=== PATIENT | female | born 1930 | race Caucasian/White ===

== ENCOUNTER 2017-06-21 10:02 | Emergency (ER) | payer OTHER ==
[~2017-06-21] VITALS: Ht 162.6 cm; Wt 74.8 kg
--- NOTE | ~2017-06-21 | EKG ---
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
[~2017-06-21 10:02] MED LIST: ALEVE220 MG PO; APAP500 PO; ASPIR 8181 MG PO; BREATHE RIGHT1 EACH; CENTRUM SILVER1 EAC4 PO; ELIQUIS5 MG; FISH OIL 1,001000 M2 PO; FLAGYL500 MG; IBUPROFEN 200200 M1 PO; LOPRESSOR25 PO; METAMUCIL PAC1 UDPKT PO; MICROZIDE12.5 MG PO; PACERONE 200 M200 M1 PO; POTASSIUM20 PO; SINGULAIR 10 MG10 M1 PO; VIACTIV SOFT C1 EACH PO; VITAMIN D31000 UNI2 PO; XARELTO10 MG PO; XARELTO20 MG PO; ZOCOR20 MG PO
[2017-06-21] MEDS ORDERED: COREG6.25 MG PO (10:28)
[2017-06-21] MEDS ORDERED: ATORVASTATIN CA40 MG PO (10:28)
[2017-06-21] MEDS ORDERED: XANAX 0.25 MG0.25 MG PO (10:29)
[2017-06-21 11:04] LABS: ABSOLUTE NEUTROPHILS 4.2 thou/uL (1.4-8.2); BASOPHILS 1.2 % (0.0-2.0); EOSINOPHILS 1.8 % (0.0-3.0); HEMATOCRIT 39.6 % (37.0-47.0); HEMOGLOBIN 13.9 gm/dL (12.0-15.0); MANUAL DIFF NO; MCH 30.7 pg (26.0-34.0); MCV 87.8 fL (80.0-100.0); MONOCYTES 7.1 % (1.0-8.0); PLATELET COUNT 227 thou/uL (150-400); POLYS 59.9 % (36.0-66.0); RBC 4.51 mil/uL (4.20-5.00); RDW 13.5 % (10.5-14.5); WBC 7.1 thou/uL (4.0-11.0)
[2017-06-21 11:11] LABS: CALCIUM 9.6 mg/dL (8.5-10.1); POTASSIUM 4.5 mmol/L (3.5-5.1)
[2017-06-21 11:17] LABS: ALBUMIN 3.9 g/dL (3.4-5.0); DIRECT BILIRUBIN 0.1 mg/dL (<0.1-0.3); TOTAL BILIRUBIN 0.6 mg/dL (<0.1-1.0); TOTAL PROTEIN 7.3 g/dL (6.4-8.2)
[2017-06-21 11:39] LABS: URINE BILIRUBIN NEGATIVE (Negative); URINE BLOOD 1+ (Negative); URINE COLOR YELLOW; URINE GLUCOSE-RANDOM* NEGATIVE (Negative); URINE KETONES NEGATIVE (Negative); URINE LEUKOCYTES-REFLEX 1+ (Negative); URINE PROTEIN (DIPSTICK) NEGATIVE (Negative); URINE SPECIFIC GRAVITY <= 1.005 (1.003-1.035); URINE UROBILINOGEN 0.2 E.U./dl (0.2-1.0)
[2017-06-21 12:22] LABS: CASTS None Seen /LPF (None Seen); CRYSTALS None Seen /LPF (None Seen); SQUAMOUS None Seen /LPF (0-3); URINE RBC 0-2 Rare /HPF (0-2); URINE WBC-REFLEX 0-5 Rare /HPF (0-5)
== END 2017-06-21 14:24 | disposition home or self-care (01) ==
LOC: ER 10:02
PROVIDERS: Emergency Medicine
DX: R10.84 Generalized abdominal pain (principal); I10 Essential (primary) hypertension; Z98.890 Other specified postprocedural states; Z88.1 Allergy status to other antibiotic agents

== ENCOUNTER 2018-03-10 08:22 | Emergency (ER) | payer OTHER ==
[~2018-03-10] VITALS: Ht 165.1 cm; Wt 72.6 kg
--- NOTE | ~2018-03-10 | EKG ---
[place] [address] [facility] [place] [address] ELECTROCARDIOGRAM REPORT Name: EDILBERTO GOVEA Room #: [facility]..#: [id number] Admission: Attend Phys: Discharge: Date of : 34 Report #: [id number] THIS REPORT FOR: //name// 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
[~2018-03-10 08:22] MED LIST changes: +ATORVASTATIN CA40 MG PO; +COREG6.25 MG PO; +XANAX 0.25 MG0.25 MG PO
[2018-03-10] MEDS ORDERED: FLONASE 0.05%50 MCG NASAL (08:57)
[2018-03-10] MEDS ORDERED: BIOTIN5000 MC1 PO (08:57)
[2018-03-10] MEDS ORDERED: APAP650 PO (08:57)
[2018-03-10 09:24] LABS: ABSOLUTE NEUTROPHILS 4.6 thou/uL (1.4-8.2); BASOPHILS 1.2 % (0.0-2.0); EOSINOPHILS 1.6 % (0.0-3.0); HEMATOCRIT 38.1 % (37.0-47.0); HEMOGLOBIN 13.3 gm/dL (12.0-15.0); LYMPHOCYTES 25.2 % (24.0-44.0); MCHC 34.9 g/dL (28.0-37.0); MCV 88.8 fL (80.0-100.0); MONOCYTES 6.2 % (1.0-8.0); PLATELET COUNT 245 thou/uL (150-400); POLYS 65.8 % (36.0-66.0); RBC 4.29 mil/uL (4.20-5.00); RDW 13.4 % (10.5-14.5)
[2018-03-10 09:33] LABS: CALCIUM 9.5 mg/dL (8.5-10.1); CREATININE 0.8 mg/dL (0.6-1.0); POTASSIUM 3.7 mmol/L (3.5-5.1)
== END 2018-03-10 10:06 | disposition home or self-care (01) ==
LOC: ER 08:22
PROVIDERS: Emergency Medicine
DX: I10 Essential (primary) hypertension (principal); Z88.1 Allergy status to other antibiotic agents

== ENCOUNTER 2018-10-01 08:51 | Emergency (ER) | payer OTHER ==
[~2018-10-01] VITALS: Ht 165.1 cm; Wt 66.7 kg
--- NOTE | ~2018-10-01 | EKG ---
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: OLGA LIDIAIsaías : 1930 Requested By: Chidi Kumar Order Number: [id number] MD: Benito Scott Measurements Intervals [place] Rate: 57 P: -17 [place]: 126 QRS: -46 QRSD: 87 T: 55 QT: 423 QTc: 412 Interpretive Statements Sinus rhythm Left axis deviation Left anterior fascicular block Compared to ECG 03/10/2018 08:50:10 no significant changes Electronically Signed On 10-01-2018 10:05:39 CONTACT CENTER TEAM LEAD by Benito Scott [email or web address] <ELECTRONICALLY SIGNED> By: Benito Scott MD 10/01/18 1005 0910 9 Benito Scott MD /ZENAIDA
[~2018-10-01 08:51] MED LIST changes: +APAP650 PO; +BIOTIN5000 MC1 PO; +FLONASE 0.05%50 MCG NASAL
[2018-10-01 09:19] LABS: ABSOLUTE NEUTROPHILS 4.9 thou/uL (1.4-8.2); BASOPHILS 1.3 % (0.0-2.0); EOSINOPHILS 1.2 % (0.0-3.0); HEMATOCRIT 40.9 % (37.0-47.0); HEMOGLOBIN 14.4 gm/dL (12.0-15.0); LYMPHOCYTES 23.6 % (24.0-44.0); MCH 31.7 pg (26.0-34.0); MCHC 35.2 g/dL (28.0-37.0); MCV 89.8 fL (80.0-100.0); MONOCYTES 6.3 % (1.0-8.0); PLATELET COUNT 313 thou/uL (150-400); POLYS 67.6 % (36.0-66.0); RBC 4.55 mil/uL (4.20-5.00); WBC 7.3 thou/uL (4.0-11.0)
[2018-10-01 09:34] LABS: ANION GAP 7 mmol/L (7-16); BUN 13 mg/dL (7-18); CALCIUM 9.9 mg/dL (8.5-10.1); CHLORIDE 102 mmol/L (98-107); CO2 29 mmol/L (21-32); CREATININE 1.1 mg/dL (0.6-1.0); GLUCOSE 119 mg/dL (74-106); SODIUM 138 mmol/L (136-145)
[2018-10-01 09:43] LABS: TROPONIN-I <0.06 ng/mL (<0.06)
[2018-10-01 09:49] LABS: URINE BILIRUBIN NEGATIVE (Negative); URINE BLOOD 2+ (Negative); URINE CLARITY CLEAR; URINE COLOR YELLOW; URINE GLUCOSE-RANDOM* NEGATIVE (Negative); URINE KETONES NEGATIVE (Negative); URINE NITRITE-REFLEX NEGATIVE (Negative); URINE PROTEIN (DIPSTICK) NEGATIVE (Negative); URINE UROBILINOGEN 0.2 E.U./dl (0.2-1.0)
[2018-10-01 09:51] LABS: URINE LEUKOCYTES-REFLEX 3+ (Negative)
[2018-10-01 10:12] LABS: CASTS None Seen /LPF (None Seen); CRYSTALS None Seen /LPF (None Seen); SQUAMOUS 4-10 Moderate /LPF (0-3)
[2018-10-01 10:14] LABS: URINE RBC 3-10 Few /HPF (0-2)
[2018-10-01] MEDS ORDERED: KEFLEX500 M1 PO (11:03)
[2018-10-01 11:25] VITALS: BP 128/57
== END 2018-10-01 11:27 | disposition home or self-care (01) ==
LOC: ER 08:51
PROVIDERS: Nurse Practitioner
DX: N39.0 Urinary tract infection, site not specified (principal); R42 Dizziness and giddiness; I10 Essential (primary) hypertension; Z90.721 Acquired absence of ovaries, unilateral; Z88.1 Allergy status to other antibiotic agents